=== PATIENT | male | born 1970 | race Caucasian/White ===

== ENCOUNTER 2022-12-02 16:29 | Emergency (ER) | payer SELFPAY ==
[~2022-12-02] VITALS: Ht 162.6 cm; Wt 88.9 kg
[2022-12-02 16:41] VITALS: BP 142/91
--- NOTE | 2022-12-02 16:52 | NUR ---
KENZIE mcknight pt. cover removed, no active laceration bleeding, gauzes over wound, pain 5/10
[2022-12-02] MEDS ORDERED: LIDOCAINE MPF 1% 10 MG/ML VIAL INJ ONE (17:00)
--- NOTE | 2022-12-02 17:01 | NUR ---
L INDEX FINGER IRRIGATED
--- NOTE | 2022-12-02 17:14 | NUR ---
PA w pt, will suture laceration
[2022-12-02] MEDS ORDERED: BACI-416 TP (17:28)
--- NOTE | 2022-12-02 17:30 | NUR ---
STERI STRIPS AND NON ADHERENT APPLIED. + CMS. FINGER SPLINT APPLIED.
--- NOTE | 2022-12-02 17:35 | NUR ---
Patient discharged with v/s stable. Written and verbal after care instructions ABOUT LACERATION CARE given and explained. Patient alert, oriented and verbalized understanding of instructions. Ambulatory with steady gait. All questions addressed prior to discharge. ID band removed. Patient advised to follow up with PMD. Rx of BACITRACIN given. Patient educated on indication of medication including possible reaction and side effects. Opportunity to ask questions provided and answered.
== END 2022-12-02 17:35 | disposition home or self-care (01) ==
LOC: MED 16:29
DX: S61.211A Laceration without foreign body of left index finger without damage to nail, initial encounter (principal); Z79.899 Other long term (current) drug therapy; W29.3XXA Contact with powered garden and outdoor hand tools and machinery, initial encounter; Y93.89 Activity, other specified; Y92.89 Other specified places as the place of occurrence of the external cause; Y99.8 Other external cause status
CPT/HCPCS: 12002; 99282; J2001